=== PATIENT | male | born 1960 | race Caucasian/White ===

== ENCOUNTER 2021-11-21 01:09 | Emergency (ER) | payer BC ==
[2021-11-21 01:16] VITALS: PULSE 77; RESP 18; TEMP 97.9
--- NOTE | 2021-11-21 01:32 | ED ---
ENT HPI - General Chief complaint: ENT Stated complaint: nose bleed, ear bleed Time Seen by Provider: 11/21/21 01:19 Source: patient, RN notes reviewed, old records reviewed Mode of arrival: ambulatory Limitations: no limitations - History of Present Illness Initial comments: This is a 61-year-old male to the emergency department for evaluation no blood thinners, no trauma. Patient's presents today for evaluation regards to bleeding from his nose and bleeding from his left ear. Patient has no significant history of nosebleed. Upon arrival to ER patient has no complaints no pain and bleeding is stopped. MD complaint: epistaxis, ear pain -: hour(s) Location: L ear, nose Severity: mild Severity scale (1-10): 3 Consistency: constant, now resolved Improves with: none Worsens with: none Context-Epistaxis: history of similar (No prior history of epistaxis no trauma) Context- Ear: other (Patient did have minimal bleeding from left ear) Associated Symptoms: other (none) - Related Data Home Medications Medication Instructions Recorded Confirmed No Known Home Medications 07/13/16 07/13/16 Allergies Allergy/AdvReac Type Severity Reaction Status Date / Time No Known Allergies Allergy Verified 11/21/21 01:16 Review of Systems ROS Statement: Those systems with pertinent positive or pertinent negative responses have been documented in the HPI. ROS Other: All systems not noted in ROS Statement are negative. Past Medical History Past Medical History: No Reported History History of Any Multi-Drug Resistant Organisms: None Reported Past Surgical History: Cholecystectomy Past Psychological History: No Psychological Hx Reported Smoking Status: Current every day smoker Past Alcohol Use History: Occasional Past Drug Use History: Marijuana General Exam - General Exam Comments Initial Comments: No current epistaxis Limitations: no limitations General appearance: alert, in no apparent distress Head exam: Present: atraumatic, normocephalic, normal inspection Eye exam: Present: normal appearance, PERRL, EOMI. Absent: scleral icterus, conjunctival injection, periorbital swelling ENT exam: Present: normal exam, mucous membranes moist, other (Patient does have minimal dried blood in his left ear no active bleeding) Neck exam: Present: normal inspection. Absent: tenderness, meningismus, lymphadenopathy Respiratory exam: Present: normal lung sounds bilaterally. Absent: respiratory distress, wheezes, rales, rhonchi, stridor Cardiovascular Exam: Present: regular rate, normal rhythm, normal heart sounds. Absent: systolic murmur, diastolic murmur, rubs, gallop, clicks GI/Abdominal exam: Present: soft, normal bowel sounds. Absent: distended, tenderness, guarding, rebound, rigid Extremities exam: Present: normal inspection, full ROM, normal capillary refill. Absent: tenderness, pedal edema, joint swelling, calf tenderness Back exam: Present: normal inspection Neurological exam: Present: alert, oriented X3, CN II-XII intact Psychiatric exam: Present: normal affect, normal mood Skin exam: Present: warm, dry, intact, normal color. Absent: rash Course Vital Signs 11/21/21 11/21/21 01:13 02:16 Temperature 97.9 F Pulse Rate 77 77 Respiratory 18 18 Rate Blood Pressure 197/109 144/84 O2 Sat by Pulse 97 95 Oximetry - Reevaluation(s) Reevaluation #1: 11/21/21 Medical record is reviewed Patient symptoms are improved here in the emergency department Patient informed results questions answered Medical Decision Making - Medical Decision Making 61 male to the emergency department for evaluation of nosebleed, nosebleed is currently stopped he did think he had blood coming out of his left ear. That is also stopped. Patient can be discharged home Disposition Clinical Impression: Epistaxis Disposition: HOME SELF-CARE Condition: Good Instructions (If sedation given, give patient instructions): Nosebleed (ED) Is patient prescribed a controlled substance at d/c from ED?: No Referrals: None,Stated [Primary Care Provider] - 1-2 days
[2021-11-21] MEDS ORDERED: OXYMETAZOLINE 0.05% NASL SPRAY 1 SPRAY BOTTLE NASAL STA (01:53)
[2021-11-21 03:02] VITALS: BP 144/84
== END 2021-11-21 03:01 | disposition home or self-care (01) ==
LOC: EC 01:09
DX: R04.0 Epistaxis (principal); F17.200 Nicotine dependence, unspecified, uncomplicated; F12.90 Cannabis use, unspecified, uncomplicated
CPT/HCPCS: 99283